=== PATIENT | female | born 1975 | race Caucasian/White ===

== ENCOUNTER 2018-11-25 05:59 | Inpatient (IN) | payer OTHER ==
[~2018-11-25] VITALS: Ht 175.3 cm; Wt 95.5 kg
[2018-11-25 06:26] VITALS: BP 150/84
[2018-11-25 11:37] VITALS: BP 127/73
[2018-11-25] MEDS ORDERED: NEURONTIN100 MG PO (12:33)
[2018-11-25] MEDS ORDERED: CYCLOBENZAPRINE10 MG PO (12:33)
[2018-11-25] MEDS ORDERED: LANTUS SOLOS100 U/M1 (12:34)
[2018-11-25 14:43] VITALS: BP 127/69
[2018-11-25 16:12] VITALS: BP 121/69
[2018-11-25 20:17] VITALS: BP 134/72
[2018-11-26 04:36] VITALS: BP 125/73
[2018-11-26 07:20] LABS: BASOPHIL % 0.4 % (0-2); PLATELET COUNT 318 x10^3mcL (130-400)
[2018-11-26 08:19] VITALS: BP 132/75
[2018-11-26 11:51] VITALS: BP 126/75
[2018-11-26 16:00] VITALS: BP 133/64
[2018-11-26 20:07] VITALS: BP 146/73
[2018-11-27 05:05] VITALS: BP 128/78
[2018-11-27 08:30] VITALS: BP 149/79
[2018-11-27 16:50] VITALS: BP 142/74
[2018-11-27 18:12] VITALS: BP 142/74
== END 2018-11-27 18:43 | disposition home or self-care (01) | DRG 519 ==
LOC: MU 05:59 → DU 07:30 → MU 11:23
PROVIDERS: ADMIT Obstetrics & Gynecology
PROC: 0UT90ZL Resection of Uterus, Supracervical, Open Approach (ICD-10-PCS; principal; 2018-11-25 07:30)
DX: D25.9 Leiomyoma of uterus, unspecified (principal); E11.9 Type 2 diabetes mellitus without complications; G89.29 Other chronic pain; N92.1 Excessive and frequent menstruation with irregular cycle; Z79.4 Long term (current) use of insulin; Z98.51 Tubal ligation status; Z90.49 Acquired absence of other specified parts of digestive tract
CPT/HCPCS: 82962; J0330; J0690; J1170; J1885; J2175; J2250; J2270; J2405; J2704; J2710; J3010; J3490; J7030; J7120

== ENCOUNTER → 2019-06-18 | Day surgery (SDC) | payer OTHER ==
[~2019-06-18] VITALS: Ht 175.3 cm; Wt 93.9 kg
[~2019-06-18] MED LIST: CYCLOBENZAPRINE10 MG PO; LANTUS SOLOS100 U/M1; NEURONTIN100 MG PO
[2019-06-18 06:56] VITALS: BP 141/78
[2019-06-18 14:09] VITALS: BP 151/90
== END | disposition home or self-care (01) ==
LOC: DS 06:38 → OR 08:45
DX: D26.0 Other benign neoplasm of cervix uteri (principal); N92.0 Excessive and frequent menstruation with regular cycle; E11.9 Type 2 diabetes mellitus without complications; E03.9 Hypothyroidism, unspecified; E66.8 Other obesity; Z79.899 Other long term (current) drug therapy; Z98.51 Tubal ligation status; Z90.49 Acquired absence of other specified parts of digestive tract; Z90.710 Acquired absence of both cervix and uterus; Z98.890 Other specified postprocedural states; Z68.31 Body mass index [BMI] 31.0-31.9, adult
CPT/HCPCS: C1758; J0690; J1170; J2175; J2250; J2405; J2704; J3010; J7030; J7120

== ENCOUNTER 2019-08-17 12:54 | Inpatient (IN) | payer OTHER ==
[~2019-08-17] VITALS: Ht 175.3 cm; Wt 94.3 kg
[2019-08-17 13:03] VITALS: Ht 175.3 cm; Wt 94.3 kg
[2019-08-17 13:25] LABS: BASOPHIL % 0.6 % (0-2); PLATELET COUNT 298 x10^3mcL (130-400); RED CELL DISTRIBUTION WIDTH 12.8 % (11.5-14.5)
[2019-08-17 13:33] LABS: CALCIUM 7.9 mg/dL (8.5-10.1); CARBON DIOXIDE 26.7 mmol/L (21-32); CHLORIDE SERUM 103 mmol/L (98-107); CREATININE SERUM 0.6 mg/dL (0.6-1.0); GFR1 > 60 mL/min; GLUCOSE SERUM 168 mg/dL (74-106); POTASSIUM SERUM 3.8 mmol/L (3.5-5.1); SODIUM SERUM 137 mmol/L (136-145)
[2019-08-17 13:38] LABS: ALKALINE PHOSPHATASE 126 U/L (46-116); ALT/SGPT 70 U/L (14-59); AST/SGOT 85 U/L (15-37); BILIRUBIN TOTAL 1.51 mg/dL (0.20-1.00); TOTAL PROTEIN, SERUM 7.4 g/dL (6.4-8.2)
[2019-08-17 13:49] LABS: ALBUMIN 3.3 g/dL (3.4-5.0)
[2019-08-17 17:24] LABS: microscopic required? YES; urine erythrocyte TRACE (NEGATIVE)
[2019-08-17] MEDS ORDERED: OSTERA TABLET1 EACH (19:05)
[2019-08-17 21:24] VITALS: BP 116/63
[2019-08-18 05:45] VITALS: BP 122/68
[2019-08-18 06:39] LABS: BASOPHIL % 0.3 % (0-2); PLATELET COUNT 233 x10^3mcL (130-400); RED CELL DISTRIBUTION WIDTH 13.2 % (11.5-14.5)
[2019-08-18 07:05] LABS: CALCIUM 7.1 mg/dL (8.5-10.1); CARBON DIOXIDE 23.4 mmol/L (21-32); CHLORIDE SERUM 107 mmol/L (98-107); CREATININE SERUM 0.5 mg/dL (0.6-1.0); GFR1 > 60 mL/min; GLUCOSE SERUM 162 mg/dL (74-106); MAGNESIUM 1.7 mg/dL (1.8-2.4); PHOSPHOROUS 2.1 mg/dL (2.5-4.9); POTASSIUM SERUM 3.1 mmol/L (3.5-5.1); SODIUM SERUM 141 mmol/L (136-145)
[2019-08-18 12:30] VITALS: BP 132/64
[2019-08-18 17:54] VITALS: BP 117/77
[2019-08-18 19:35] VITALS: BP 135/71
[2019-08-19 04:52] VITALS: BP 104/45
[2019-08-19 04:58] VITALS: BP 126/75
[2019-08-19 06:31] LABS: CALCIUM 7.5 mg/dL (8.5-10.1); CARBON DIOXIDE 23.3 mmol/L (21-32); CHLORIDE SERUM 108 mmol/L (98-107); CREATININE SERUM 0.4 mg/dL (0.6-1.0); GFR1 > 60 mL/min; GLUCOSE SERUM 110 mg/dL (74-106); MAGNESIUM 1.8 mg/dL (1.8-2.4); PHOSPHOROUS 2.7 mg/dL (2.5-4.9); POTASSIUM SERUM 3.7 mmol/L (3.5-5.1); SODIUM SERUM 141 mmol/L (136-145)
[2019-08-19 06:54] LABS: BASOPHIL % 0.3 % (0-2); PLATELET COUNT 258 x10^3mcL (130-400); RED CELL DISTRIBUTION WIDTH 13.3 % (11.5-14.5)
[2019-08-19 09:05] VITALS: BP 147/75
[2019-08-19] MEDS ORDERED: CIPRO500 MG PO (10:07)
[2019-08-19] MEDS ORDERED: IBUPROFEN400 MG PO (10:08)
[2019-08-19] MEDS ORDERED: NORCO1 TA2 PO (10:10)
[2019-08-19 10:29] VITALS: BP 147/75
== END 2019-08-19 13:12 | disposition home or self-care (01) | DRG 233 ==
LOC: ED 12:54 → MU 19:18
PROVIDERS: Emergency Medicine; Family Medicine Addiction Medicine; ADMIT General Practice
PROC: 0DTJ4ZZ Resection of Appendix, Percutaneous Endoscopic Approach (ICD-10-PCS; principal; 2019-08-18 11:00)
DX: K35.32 Acute appendicitis with perforation, localized peritonitis, and gangrene, without abscess (principal); E11.65 Type 2 diabetes mellitus with hyperglycemia; Z68.30 Body mass index [BMI] 30.0-30.9, adult; E03.9 Hypothyroidism, unspecified; K66.0 Peritoneal adhesions (postprocedural) (postinfection); N39.0 Urinary tract infection, site not specified; Z79.84 Long term (current) use of oral hypoglycemic drugs; Z90.49 Acquired absence of other specified parts of digestive tract
CPT/HCPCS: 82962; G0378; J0330; J0690; J0744; J1170; J1885; J2001; J2405; J2543; J2704; J2710; J3010; J3490; J7030; J7042; J7120; Q0092